=== PATIENT | male | born 1995 ===

== ENCOUNTER 2018-03-08 15:17 | Emergency (ER) | payer SELFPAY ==
[2018-03-08 15:41] VITALS: BP 114/76
--- NOTE | 2018-03-08 16:43 | XRay Report ---
FINAL REPORT EXAM: XR KNEE 3V RT HISTORY: pain/swelling-denies injury TECHNIQUE: Frontal, lateral, oblique views right knee Comparison: None FINDINGS: There is no evidence of fracture, subluxation, lytic or blastic change or periosteal reaction. The joint spaces are maintained. The soft tissues are unremarkable IMPRESSION: 1. No plain film evidence of bony or soft tissue abnormality. If further imaging is required, MRI may be helpful.
== END 2018-03-08 16:15 | disposition left against medical advice (07) ==
LOC: ED 15:17
DX: M25.561 Pain in right knee (principal); Z53.21 Procedure and treatment not carried out due to patient leaving prior to being seen by health care provider